=== PATIENT | male | born 1965 | race Caucasian/White ===

== ENCOUNTER → 2024-11-13 08:26 | Outpatient (REF) | payer OTHER, SELFPAY ==
[2024-11-13 09:23] LABS: % Basophils 0.8 % (0-2); % Eosinophils 3.6 % (0-6); % Immature Granulocytes 0.4 % (0-0.5); % Lymphocytes 36.5 % (20.5-51.1); % Monocytes 9.4 % (1.7-9.3); % Neutrophils 49.3 % (42.2-75.2); Absolute Eosinophils 0.2 10^3/uL (0-0.7); Absolute Lymphocytes 1.8 10^3/uL (1.2-3.4); Absolute Monocytes 0.5 10^3/uL (0.1-0.6); Absolute Neutrophils 2.5 10^3/uL (1.4-6.5); Hematocrit 44.4 % (39.0-52.0); Hemoglobin 15.5 g/dL (13.0-18.0); Mean Corp Hgb Conc. 34.9 g/dL (33.0-37.0); Mean Corpuscular Hgb 29.1 pg (27.0-31.0); Mean Corpuscular Volume 83.5 fL (80.0-94.0); Mean Platelet Volume 10.8 fL (7.4-10.4); Nucleated Red Blood Cells % 0 % (-); Platelet Count 151 10^3/uL (130-400); Red Blood Cell Count 5.32 10^6/uL (4.70-6.10); Red Cell Dist. Width 13.3 % (11.5-14.5)
[2024-11-13 10:12] LABS: Microalbumin, Random Urine < 0.6 mg/dl (0.6-1.7)
[2024-11-13 10:30] LABS: Glycohemoglobin (HgbA1c) 6.1 % (4.0-5.6)
[2024-11-13 10:43] LABS: ALT (SGPT) 55 U/L (0-50); AST (SGOT) 40 U/L (17-59); Albumin 4.9 g/dl (3.5-5.0); Alkaline Phosphatase 51 U/L (38-126); Blood Urea Nitrogen 16 mg/dl (9-20); Carbon Dioxide 26 mmol/L (22-30); Chloride 102 mmol/L (98-107); Glucose 119 mg/dl (70-99); HDL Cholesterol 34 mg/dl; LDL Cholesterol, Calculated 122 mg/dl; Potassium 4.4 mmol/L (3.5-5.1); Sodium 141 mmol/L (135-145); Total Bilirubin 0.8 mg/dl (0.2-1.3); Total Cholesterol 184 mg/dl (50-199); Total Protein 7.2 g/dl (6.3-8.2); Triglyceride 141 mg/dl (10-149); Very Low Density Lipoprotein 28 mg/dl (0-30); eGFR > 60.00
[2024-11-13 14:25] LABS: Free T4 1.34 ng/dl (0.78-2.19)
[2024-11-13 14:39] LABS: TSH 1.66 uIU/ml (0.47-4.68)
[2024-11-14 21:58] LABS: Thyroglobulin Antibodies <0.9 IU/mL (0.0-4.0); Thyroid Peroxidase Ab (TPO) <0.3 IU/mL (0.0-9.0)
[2024-11-14 22:17] LABS: Thyroglobulin 0.1 ng/mL (1.3-31.8)
== END ==
LOC: REG 08:26
PROVIDERS: ATTENDING PHYSICIAN Internal Medicine Endocrinology, Diabetes & Metabolism; FAMILY PHYSICIAN Internal Medicine
DX: Z00.00 Encounter for general adult medical examination without abnormal findings (principal); E11.9 Type 2 diabetes mellitus without complications; Z12.5 Encounter for screening for malignant neoplasm of prostate; Z85.850 Personal history of malignant neoplasm of thyroid; E03.2 Hypothyroidism due to medicaments and other exogenous substances
CPT/HCPCS: 36415; 80053; 80061; 82043; 82570; 83036; 84432; 84439; 84443; 85025; 86376; 86800